=== PATIENT | male | born 1975 | race Caucasian/White ===

== ENCOUNTER 2016-08-21 12:35 | Inpatient (IN) | payer BC ==
[2016-08-21] MEDS ORDERED: Sodium Chloride 0.9% 1000 ML 1,000 ML IV SCH (13:15)
[2016-08-21] MEDS ORDERED: Zofran 4 MG/2 ML VIAL IV ONE (13:21)
[2016-08-21] MEDS ORDERED: DILAUDID 2 MG INJECTION IV ONE (13:22)
[2016-08-21] MEDS ORDERED: Sodium Chloride 0.9% 1000 ML 1,000 ML IV STA (13:30)
--- NOTE | 2016-08-21 13:30 | ERPHSYRPT ---
- History of Present Illness Time Seen by Provider: 08/21/16 13:00 Source: patient Exam Limitations: clinical condition Patient Subjective Stated Complaint: PT REPORTS KNOWN BLOOD CLOT ET CELLULITIS IN RIGHT LEG-TX AT PCP WITH [facility] INJECTION ET RX FOR CLYNDAMICIN YESTERDAY- STATES THAT TODAY REDNESS HAS MOVED UP PAST HIS KNEE-REPORTS FEVER AT HOME Triage Nursing Assessment: PT PINK WARM ET DRY-A & O X 3-REDNESS WARMTH NOTED TO RIGHT LEG FRON FOOT TO UPPER THIGH AREA-PEDAL PULSE PRESENT-PT HAS FULL ROM TO EXTREMITY Physician History: PATIENT WITH HISTORY OF DVT RIGHT LOWER EXTREMITY, MORBID OBESITY, AND MULTIPLE EPISODES OF CELLULITIS COMPLAINS OF RIGHT CALF REDNESS YESTERDAY WHICH HAS NOW EXTENDED TO THE LEVEL OF HIS RIGHT KNEE. HAS ASSOCIATED FEVER, CHILLS AND CALF PAIN. DENIES DYSPNEA OR CHEST PAIN. Method of Injury: other (NO RECENT INJURY OR TRAUMA) Severity of Pain-Max: moderate Severity of Pain-Current: moderate Lower Extremities Pain: leg: right Modifying Factors: Improves With: movement Allergies/Adverse Reactions: sulfamethoxazole [From Bactrim] Allergy (Intermediate, Verified 08/21/16 12:59) Rash trimethoprim [From Bactrim] Allergy (Intermediate, Verified 08/21/16 12:59) Rash Home Medications: Furosemide 20 mg [Lasix 20 mg] 20 mg PO DAILY 11/03/12 [History] Lisinopril 20 mg [Zestril 20 MG] 20 mg PO DAILY 11/03/12 [History] Potassium Chloride [K-Dur] 10 meq PO DAILY 11/03/12 [History] Warfarin Sodium [Jantoven] 18 mg PO DAILY 04/03/13 [History] Bupropion HCl 150 mg Sr [Wellbutrin SR 150 MG] 150 mg PO DAILY 08/21/16 [ History] Hx Tetanus, Diphtheria Vaccination/Date Given: Yes Hx Influenza Vaccination/Date Given: No Hx Pneumococcal Vaccination/Date Given: No Immunizations Up to Date: Yes - Review of Systems Constitutional: Fever, Chills Eyes: No Symptoms Ears, Nose, & Throat: No Symptoms Respiratory: No Symptoms, No Cough, No Dyspnea Cardiac: No Symptoms, No Chest Pain, No Edema, No Syncope Abdominal/Gastrointestinal: No Abdominal Pain, No Nausea, No Vomiting, No Diarrhea Genitourinary Symptoms: No Dysuria Musculoskeletal: No Back Pain, No Neck Pain Skin: Cellulitis, No Rash Neurological: No Dizziness, No Focal Weakness, No Sensory Changes Psychological: No Symptoms Endocrine: No Symptoms All Other Systems: Reviewed and Negative - Past Medical History Pertinent Past Medical History: Yes Neurological History: No Pertinent History ENT History: No Pertinent History Cardiac History: Deep Vein Thrombosis, Hypertension Respiratory History: No Pertinent History Endocrine Medical History: No Pertinent History Musculoskeletal History: No Pertinent History GI Medical History: GERD History: No Pertinent History Psycho-Social History: No Pertinent History Male Reproductive Disorders: No Pertinent History - Past Surgical History Past Surgical History: Yes Neuro Surgical History: No Pertinent History Cardiac: No Pertinent History Respiratory: No Pertinent History Gastrointestinal: No Pertinent History Genitourinary: No Pertinent History Musculoskeletal: No Pertinent History Male Surgical History: No Pertinent History Other Surgical History: TONSILLECTOMY - Social History Smoking Status: Former smoker Exposure to second hand smoke: No Drug Use: none Patient Lives Alone: Yes - Nursing Vital Signs Nursing Vital Signs: Initial Vital Signs Temperature 98.7 F Temperature Source Oral Pulse Rate 92 Respiratory Rate 20 Blood Pressure 106/54 Pain Intensity 0 - Physical Exam General Appearance: alert Eyes, Ears, Nose, Throat Exam: moist mucous membranes Neck Exam: non-tender, supple Cardiovascular/Respiratory Exam: chest non-tender, normal breath sounds, regular rate/rhythm, no respiratory distress Gastrointestinal/Abdominal Exam: non-tender, guarding Back Exam: normal inspection, No vertebral tenderness Legs Exam: right leg: pain, soft tissue tenderness, swelling (CONFLUENT ERYTHRMA EXTENDS ANKLE TO KNEE, RIGHT PEDIS PULSE 2+, CIRCUMFERENCE RIGHT MILD CALF 63CM COMPARED TO LEFT CALF CIRCUMFERENCE 51CM) Neuro/Tendon Exam: normal sensation, normal motor functions Mental Status Exam: alert, oriented x 3, cooperative Skin Exam: normal color, warm, dry SpO2 Interpretation: normal SpO2: 94 Oxygen Delivery: Room Air Ordered Tests: Active Orders 24 hr Category Date Time Status IV Insertion STAT Care 08/21/16 13:05 Active BLOOD CULTURE Stat Lab 08/21/16 13:33 Received CBC W DIFF Stat Lab 08/21/16 13:26 Completed CMP Stat Lab 08/21/16 13:26 Completed Lactic Acid Urgent Lab 08/21/16 13:05 Completed Manual Differential NC Stat Lab 08/21/16 13:26 Completed PT INR [PROTIME WITH INR] Stat Lab 08/21/16 13:26 Completed Transfer Order Routine Transfer 08/21/16 15:25 Ordered Medication Summary Generic Name Dose Route Start Last Admin Trade Name Bill PRN Reason Stop Dose Admin Sodium Chloride 1,000 mls @ 100 mls/hr 08/21/16 13:15 08/21/16 14:56 Sodium Chloride 0.9% 1000 Ml IV 09/20/16 13:14 100 mls/hr .Q10H CB Administration Vancomycin HCl 250 mls @ 250 mls/hr 08/21/16 13:45 08/21/16 15:01 Vancomycin 1gm/ Ns 250ml IV 08/21/16 15:44 250 mls/hr Q1H CB Administration Discontinued Medications Generic Name Dose Route Start Last Admin Trade Name Bill PRN Reason Stop Dose Admin Hydromorphone HCl 2 mg 08/21/16 13:22 08/21/16 13:40 Dilaudid 2 Mg Injection IV 08/21/16 13:23 2 mg STAT ONE Administration Hydromorphone HCl Confirm 08/21/16 13:37 Dilaudid 1 Mg/Ml Injection Administered 08/21/16 13:38 Dose 2 mg .ROUTE .STK-MED ONE Sodium Chloride 1,000 mls @ 999 mls/hr 08/21/16 13:30 08/21/16 13:40 Sodium Chloride 0.9% 1000 Ml IV 08/21/16 14:30 999 mls/hr .Q1H1M STA Administration Piperacillin Sod/Tazobactam 100 mls @ 100 mls/hr 08/21/16 13:31 08/21/16 13: 39 Sod 4.5 gm/ Dextrose IV 08/21/16 14:30 100 mls/hr STAT ONE Administration Sodium Chloride Confirm 08/21/16 13:37 Sodium Chloride 0.9% 1000 Ml Administered 08/21/16 13:38 Dose 1,000 mls @ ud .ROUTE .STK-MED ONE Dextrose Confirm 08/21/16 13:37 D5w 100ml Mini Bag 100 Ml Administered 08/21/16 13:38 Dose 100 mls @ ud IV .STK-MED ONE Sodium Chloride Confirm 08/21/16 14:55 Sodium Chloride 0.9% 1000 Ml Administered 08/21/16 14:56 Dose 1,000 mls @ ud .ROUTE .STK-MED ONE Vancomycin HCl Confirm 08/21/16 14:55 Vancomycin 1gm/ Ns 250ml Administered 08/21/16 14:56 Dose 250 mls @ ud IV .STK-MED ONE Ondansetron HCl 4 mg 08/21/16 13:21 08/21/16 13:39 Zofran 4 Mg/2 Ml Vial IV 08/21/16 13:22 4 mg STAT ONE Administration Ondansetron HCl Confirm 08/21/16 13:37 Zofran 4 Mg/2 Ml Vial Administered 08/21/16 13:38 Dose 4 mg .ROUTE .STK-MED ONE Piperacillin Sod/Tazobactam Sod Confirm 08/21/16 13:37 Zosyn Inj Administered 08/21/16 13:38 Dose 4.5 gm IV .STK-MED ONE Lab/Rad Data: Laboratory Result Diagrams 08/21/16 13:26 08/21/16 13:26 Laboratory Results 08/21/16 08/21/16 08/21/16 Range/Units 13:26 13:26 13:26 WBC 22.2 H (4.0-10.5) K/mm3 RBC 4.36 (4.1-5.6) M/mm3 Hgb 13.6 (12.5-18.0) gm/dl Hct 41.0 L (42-50) % MCV 94.0 (78-100) fl MCH 31.2 (26-32) pg MCHC 33.2 (32-36) g/dl RDW 14.1 H (11.5-14.0) % Plt Count 199 (150-450) K/mm3 MPV 9.6 H (6-9.5) fl Segmented Neutrophils 69 H (36.-66.) % Band Neutrophils 17 H (0.0-2.0) % Lymphocytes (Manual) 7 L (24-44) % Monocytes (Manual) 3 (0.0-12.0) % Metamyelocytes 4 % Dohle Bodies 1+ Platelet Estimate NORMAL (NORMAL) Anisocytosis 1+ INR 2.57 (0.8-3.0) Sodium 139 (136-145) mEq/L Potassium 4.1 (3.5-5.1) mEq/L Chloride 102 (98-107) mEq/L Carbon Dioxide 26.3 (21-32) mEq/L Anion Gap 14.6 (5-15) MEQ/L BUN 16 (9-20) mg/dL Creatinine 1.25 (0.55-1.30) mg/dl Estimated GFR > 60 ML/MIN Glucose 102 (70-110) MG/DL Lactic Acid (0.4-2.0) Calcium 8.8 (8.5-10.1) mg/dL Total Bilirubin 0.8 (0.2-1.0) mg/dL AST 66 H (15-37) U/L ALT 77 (12-78) U/L Alkaline Phosphatase 52 (46-116) U/L Serum Total Protein 7.3 (6.4-8.2) gm/dL Albumin 3.4 (3.4-5.0) g/dL 08/21/16 Range/Units 13:05 WBC (4.0-10.5) K/mm3 RBC (4.1-5.6) M/mm3 Hgb (12.5-18.0) gm/dl Hct (42-50) % MCV (78-100) fl MCH (26-32) pg MCHC (32-36) g/dl RDW (11.5-14.0) % Plt Count (150-450) K/mm3 MPV (6-9.5) fl Segmented Neutrophils (36.-66.) % Band Neutrophils (0.0-2.0) % Lymphocytes (Manual) (24-44) % Monocytes (Manual) (0.0-12.0) % Metamyelocytes % Dohle Bodies Platelet Estimate (NORMAL) Anisocytosis INR (0.8-3.0) Sodium (136-145) mEq/L Potassium (3.5-5.1) mEq/L Chloride (98-107) mEq/L Carbon Dioxide (21-32) mEq/L Anion Gap (5-15) MEQ/L BUN (9-20) mg/dL Creatinine (0.55-1.30) mg/dl Estimated GFR ML/MIN Glucose (70-110) MG/DL Lactic Acid 1.4 (0.4-2.0) Calcium (8.5-10.1) mg/dL Total Bilirubin (0.2-1.0) mg/dL AST (15-37) U/L ALT (12-78) U/L Alkaline Phosphatase (46-116) U/L Serum Total Protein (6.4-8.2) gm/dL Albumin (3.4-5.0) g/dL - Progress Discussed with : Giorgi Will see patient in: hospital (full admit) (AT 1430) - Departure Time of Disposition: 15:30 Departure Disposition: In-patient Admission Clinical Impression: CELLULITIS RIGHT LOWER EXTREMITY Condition: Stable Critical Care Time: No Referrals: MARYJANE ASIF NP [Primary Care Provider] -
[2016-08-21] MEDS ORDERED: Zosyn INJ 4.5 GM in D5w 100ML Mini Bag 100 ML 100 ML IV ONE (13:31)
[2016-08-21] MEDS ORDERED: Zofran 4 MG/2 ML VIAL ONE (13:37)
[2016-08-21] MEDS ORDERED: D5w 100ML Mini Bag 100 ML 100 ML IV ONE (13:37)
[2016-08-21] MEDS ORDERED: DILAUDID 1 MG/ML INJECTION ONE (13:37)
[2016-08-21] MEDS ORDERED: Zosyn INJ IV ONE (13:37)
[2016-08-21] MEDS ORDERED: Sodium Chloride 0.9% 1000 ML 1,000 ML ONE ×2 (13:37→14:55)
[2016-08-21 13:46] LABS: Mean Corpuscular Hemoglobin 31.2 pg (26-32); Mean Platelet Volume 9.6 fl (6-9.5); Platelet Count 199 K/mm3 (150-450); Red Blood Count 4.36 M/mm3 (4.1-5.6); Red Cell Distribution Width 14.1 % (11.5-14.0); White Blood Count 22.2 K/mm3 (4.0-10.5)
[2016-08-21 14:02] LABS: ALBUMIN 3.4 g/dL (3.4-5.0); ALKALINE PHOSPHATASE 52 U/L (46-116); ANION GAP 14.6 MEQ/L (5-15); BILIRUBIN,TOTAL 0.8 mg/dL (0.2-1.0); BLOOD UREA NITROGEN 16 mg/dL (9-20); CHLORIDE 102 mEq/L (98-107); Carbon Dioxide 26.3 mEq/L (21-32); Glucose 102 MG/DL (70-110); Potassium 4.1 mEq/L (3.5-5.1); SGOT/AST 66 U/L (15-37); SGPT/ALT 77 U/L (12-78); SODIUM 139 mEq/L (136-145); Total Protein 7.3 gm/dL (6.4-8.2)
[2016-08-21 14:05] LABS: INR 2.57 (0.8-3.0)
[2016-08-21 14:49] LABS: BAND 17 % (0.0-2.0); Metamyelocyte 4 %; Total Cells Counted 100
[2016-08-21] MEDS ORDERED: Vancomycin 1GM/ Ns 250ML*** 250 ML IV ONE (14:55)
[2016-08-21 14:57] LABS: Dohle Bodies 1+; Platelet Estimate NORMAL (NORMAL)
[2016-08-21 14:58] LABS: ANISOCYTOSIS 1+
[2016-08-21] MEDS: Vancomycin 1GM/ Ns 250ML*** 250 ML IV SCH ×2 (15:01→17:24)
[2016-08-21] MEDS ORDERED: TYLENOL 325 MG PO PRN (15:48)
[2016-08-21] MEDS ORDERED: DILAUDID 2 MG INJECTION IV PRN (15:48)
[2016-08-21] MEDS ORDERED: Zofran 4 MG/2 ML VIAL IV PRN (15:48)
[2016-08-21] MEDS: Coumadin 3 MG PO SCH (18:50)
[2016-08-21] MEDS: Coumadin 5 MG PO SCH (18:50)
[2016-08-21] MEDS: VOLTAREN 50 MG PO SCH (18:50)
[2016-08-21] MEDS: Zosyn 3.375GM/100 Ml D5W 100 ML IV SCH (20:52)
[2016-08-21] MEDS: Wellbutrin SR 150 MG PO SCH (21:51)
[2016-08-21] MEDS ORDERED: NON-FORMULARY ITEM (Diclofenac Sodium [Voltaren] 75 MG) PO SCH (22:00)
[2016-08-22] MEDS: Zosyn 3.375GM/100 Ml D5W 100 ML IV SCH ×4 (01:36→17:52)
[2016-08-22] MEDS: Sodium Chloride 0.9% 1000 ML 1,000 ML IV SCH ×2 (05:08→05:41)
[2016-08-22] MEDS: VANCOCIN 1 GM VIAL*** 2 GM in Sodium Chloride 0.9% 500 ML 500 ML IV SCH ×2 (06:43→19:23)
[2016-08-22] MEDS: LASIX 20 MG PO SCH (08:35)
[2016-08-22] MEDS: Klor Con 10 MEQ PO SCH (08:35)
[2016-08-22] MEDS: Wellbutrin SR 150 MG PO SCH ×2 (08:35→21:19)
[2016-08-22] MEDS: VOLTAREN 50 MG PO SCH ×2 (08:36→21:19)
[2016-08-22] MEDS: Zestril 20 MG PO SCH (08:36)
[2016-08-22 09:39] LABS: BASOPHIL % 0.1 % (0.0-0.4); Eosinophil % 0.1 % (0.00-5.0); Granulocytes % 93.3 % (36.0-66.0); Lymphocytes % 4.8 % (24.0-44.0); Mean Cell Volume 95.9 fl (78-100); Mean Platelet Volume 9.8 fl (6-9.5); Monocytes % 1.7 % (0.0-12.0); Platelet Count 178 K/mm3 (150-450); Red Blood Count 4.13 M/mm3 (4.1-5.6); Red Cell Distribution Width 14.6 % (11.5-14.0)
[2016-08-22] MEDS ORDERED: NON-FORMULARY ITEM (Potassium Chloride [K-Dur] 10 MEQ) PO SCH (10:00)
[2016-08-22 10:08] LABS: INR 2.08 (0.8-3.0); PROTIME 22.8 SECONDS (8.83-12.87)
--- NOTE | 2016-08-22 10:55 | HP ---
CHIEF COMPLAINT: Swelling and redness in right lower extremity, history of deep vein thrombosis. HISTORY OF PRESENT ILLNESS: The patient is a 41 y/o WM patient who presented to the Emergency Room with the above complaints. He reports he had fever up to 104 at home. He had been seen the day previous at the [facility] and placed on Clindamycin, but the patient reports the pain, redness, and swelling got worse, so he presented himself to the Emergency Room. PAST MEDICAL HISTORY: Significant for deep vein thrombosis, depression, hypertension. He has had a tonsillectomy. PHYSICAL EXAMINATION: Reveals an obese WM patient 41 years of age. His temperature was 98.7 oral, pulse 92, respiratory rate 20, BP 106/54. HEENT: Normocephalic and atraumatic. Pupils equal, round, and reactive to light. Extraocular movements intact. Oropharynx was pink and moist. NECK: Supple without lymphadenopathy, thyromegaly, or JVD. CHEST: Clear to auscultation with good air movement bilaterally. HEART: Regular rate and rhythm without murmurs, rubs, or gallops. ABDOMEN: Soft, nontender, nondistended without hepatosplenomegaly or masses. EXTREMITIES: Without clubbing, cyanosis, or edema. There is cellulitis extending upwards from the foot up to the knee anteriorly and posteriorly up on the thigh up to the groin. The patient also has swelling in that area noted. It is with increase in warmth compared to the opposite leg. LABORATORY STUDIES: Reveal WBC of 22,200 with an Hgb of 13.6, platelet count 199,000. He has 17 bands and 69 polys. His metabolic panel was normal with the exception SGOT was just elevated at 66. He had a lactic acid of 1.4 and an INR of 2.57. ASSESSMENT: 1. PATIENT WITH DEEP VENOUS THROMBOSIS RIGHT LEG OF LONG-STANDING WHO IS ADEQUATELY ANTICOAGULATED AND NOW CELLULITIS IN THAT SAME LEG. The patient has been admitted to the hospital for IV fluids, pain control, and IV antibiotics of Zosyn and vancomycin. The patient will be continued on his Coumadin and his usual home medications otherwise.
[2016-08-22] MEDS: Coumadin 5 MG PO SCH (17:53)
[2016-08-22] MEDS: Coumadin 3 MG PO SCH (17:53)
[2016-08-23] MEDS: Sodium Chloride 0.9% 1000 ML 1,000 ML IV SCH ×3 (00:22→11:47)
[2016-08-23] MEDS: Zosyn 3.375GM/100 Ml D5W 100 ML IV SCH ×5 (00:22→23:06)
[2016-08-23] MEDS ORDERED: TROUGH DRUG LEVELS IJ ONE (05:30)
[2016-08-23 05:37] LABS: Mean Cell Volume 95.5 fl (78-100); Mean Corpuscular Hemoglobin 30.5 pg (26-32); Mean Platelet Volume 9.7 fl (6-9.5); Platelet Count 193 K/mm3 (150-450); Red Blood Count 4.19 M/mm3 (4.1-5.6); Red Cell Distribution Width 14.6 % (11.5-14.0); White Blood Count 13.8 K/mm3 (4.0-10.5)
[2016-08-23 05:48] LABS: INR 2.34 (0.8-3.0); PROTIME 25.6 SECONDS (8.83-12.87)
[2016-08-23] MEDS: VANCOCIN 1 GM VIAL*** 2 GM in Sodium Chloride 0.9% 500 ML 500 ML IV SCH ×2 (06:10→18:15)
[2016-08-23] MEDS: Wellbutrin SR 150 MG PO SCH ×2 (09:24→21:23)
[2016-08-23] MEDS: LASIX 20 MG PO SCH (09:24)
[2016-08-23] MEDS: VOLTAREN 50 MG PO SCH ×2 (09:24→21:23)
[2016-08-23] MEDS: Zestril 20 MG PO SCH (09:25)
[2016-08-23] MEDS: Klor Con 10 MEQ PO SCH (09:25)
[2016-08-23 10:48] LABS: BAND 7 % (0.0-2.0); Platelet Estimate NORMAL (NORMAL); Total Cells Counted 100; Toxic Granulation 1+
[2016-08-23] MEDS: Coumadin 3 MG PO SCH (17:12)
[2016-08-23] MEDS: Coumadin 5 MG PO SCH (17:12)
[2016-08-24] MEDS: Zosyn 3.375GM/100 Ml D5W 100 ML IV SCH ×3 (05:09→17:22)
[2016-08-24] MEDS: VANCOCIN 1 GM VIAL*** 2 GM in Sodium Chloride 0.9% 500 ML 500 ML IV SCH ×2 (06:21→18:41)
[2016-08-24 06:30] LABS: Mean Cell Volume 95.5 fl (78-100); Mean Platelet Volume 9.7 fl (6-9.5); Platelet Count 211 K/mm3 (150-450); Red Blood Count 3.79 M/mm3 (4.1-5.6); Red Cell Distribution Width 14.5 % (11.5-14.0); White Blood Count 10.6 K/mm3 (4.0-10.5)
[2016-08-24 06:37] LABS: Mean Corpuscular Hemoglobin 30.8 pg (26-32)
[2016-08-24 06:38] LABS: ALBUMIN 2.8 g/dL (3.4-5.0); ALKALINE PHOSPHATASE 57 U/L (46-116); ANION GAP 11.4 MEQ/L (5-15); BILIRUBIN,TOTAL 0.3 mg/dL (0.2-1.0); BLOOD UREA NITROGEN 11 mg/dL (9-20); CHLORIDE 104 mEq/L (98-107); Carbon Dioxide 28.7 mEq/L (21-32); Glucose 98 MG/DL (70-110); Potassium 3.8 mEq/L (3.5-5.1); SGOT/AST 38 U/L (15-37); SGPT/ALT 53 U/L (12-78); SODIUM 140 mEq/L (136-145); Total Protein 7.1 gm/dL (6.4-8.2)
[2016-08-24 06:44] LABS: INR 2.81 (0.8-3.0); PROTIME 30.5 SECONDS (8.83-12.87)
[2016-08-24 07:51] LABS: BAND 1 % (0.0-2.0); Metamyelocyte 1 %; Total Cells Counted 100
[2016-08-24 07:52] LABS: Platelet Estimate NORMAL (NORMAL)
[2016-08-24] MEDS: VOLTAREN 50 MG PO SCH ×2 (09:14→22:50)
[2016-08-24] MEDS: Klor Con 10 MEQ PO SCH (09:15)
[2016-08-24] MEDS: Wellbutrin SR 150 MG PO SCH ×2 (09:15→22:50)
[2016-08-24] MEDS: LASIX 20 MG PO SCH (09:15)
[2016-08-24] MEDS: Zestril 20 MG PO SCH (09:15)
[2016-08-24] MEDS: Protonix 40MG Tablet PO SCH (09:46)
[2016-08-24] MEDS: Coumadin 5 MG PO SCH (17:22)
[2016-08-24] MEDS: Coumadin 3 MG PO SCH (17:23)
[2016-08-24] MEDS ORDERED: Vancomycin 1GM/ Ns 250ML*** 500 ML IV ONE (18:39)
[2016-08-25] MEDS: Zosyn 3.375GM/100 Ml D5W 100 ML IV SCH ×5 (03:33→23:48)
[2016-08-25] MEDS: VANCOCIN 1 GM VIAL*** 2 GM in Sodium Chloride 0.9% 500 ML 500 ML IV SCH ×2 (05:24→19:16)
[2016-08-25] MEDS ORDERED: SILVADENE 50 GM TP ONE (08:41)
[2016-08-25] MEDS ORDERED: Bactroban OINTMENT TP SCH (10:00)
[2016-08-25] MEDS: VOLTAREN 50 MG PO SCH ×2 (10:09→21:59)
[2016-08-25] MEDS: Wellbutrin SR 150 MG PO SCH ×2 (10:09→21:59)
[2016-08-25] MEDS: LASIX 20 MG PO SCH (10:09)
[2016-08-25] MEDS: Zestril 20 MG PO SCH (10:09)
[2016-08-25] MEDS: Protonix 40MG Tablet PO SCH (10:09)
[2016-08-25] MEDS: Klor Con 10 MEQ PO SCH (10:09)
[2016-08-25] MEDS: Coumadin 5 MG PO SCH (18:11)
[2016-08-25] MEDS: Coumadin 3 MG PO SCH (18:11)
[2016-08-26] MEDS: Zosyn 3.375GM/100 Ml D5W 100 ML IV SCH ×4 (05:35→23:17)
[2016-08-26] MEDS: VANCOCIN 1 GM VIAL*** 2 GM in Sodium Chloride 0.9% 500 ML 500 ML IV SCH ×2 (06:31→19:42)
[2016-08-26] MEDS: Bactroban OINTMENT TP SCH (09:15)
[2016-08-26] MEDS: Wellbutrin SR 150 MG PO SCH ×2 (09:15→21:45)
[2016-08-26] MEDS: LASIX 20 MG PO SCH (09:16)
[2016-08-26] MEDS: Klor Con 10 MEQ PO SCH (09:16)
[2016-08-26] MEDS: Zestril 20 MG PO SCH (09:17)
[2016-08-26] MEDS: Protonix 40MG Tablet PO SCH (09:17)
[2016-08-26] MEDS: VOLTAREN 50 MG PO SCH ×2 (09:18→21:45)
--- NOTE | 2016-08-26 13:16 | XRAY ---
Indication: Right leg edema. Two-dimensional sonogram and color Doppler imaging of the major venous vessels of the right leg was performed. Comparison: May 17, 2010. No thrombus seen in the examined deep venous vessels of the right leg including greater saphenous vein. Veins demonstrate normal compressibility. Venous waveforms are normal with and without augmentation. Impression: Right leg negative for DVT.
[2016-08-26] MEDS: Coumadin 5 MG PO SCH (18:28)
[2016-08-26] MEDS: Coumadin 3 MG PO SCH (18:28)
[2016-08-27] MEDS: Zosyn 3.375GM/100 Ml D5W 100 ML IV SCH ×4 (06:00→23:10)
[2016-08-27] MEDS: VANCOCIN 1 GM VIAL*** 2 GM in Sodium Chloride 0.9% 500 ML 500 ML IV SCH ×2 (07:14→18:42)
[2016-08-27] MEDS: LASIX 20 MG PO SCH (08:51)
[2016-08-27] MEDS: VOLTAREN 50 MG PO SCH ×2 (08:51→21:12)
[2016-08-27] MEDS: Klor Con 10 MEQ PO SCH (08:51)
[2016-08-27] MEDS: Zestril 20 MG PO SCH (08:51)
[2016-08-27] MEDS: Protonix 40MG Tablet PO SCH (08:51)
[2016-08-27] MEDS: Wellbutrin SR 150 MG PO SCH ×2 (08:51→21:12)
[2016-08-27] MEDS: Bactroban OINTMENT TP SCH (08:55)
[2016-08-27] MEDS: Coumadin 5 MG PO SCH (17:39)
[2016-08-27] MEDS: Coumadin 3 MG PO SCH (17:39)
[2016-08-28] MEDS: Zosyn 3.375GM/100 Ml D5W 100 ML IV SCH ×4 (05:32→23:32)
[2016-08-28 05:48] LABS: Mean Cell Volume 95.9 fl (78-100); Mean Corpuscular Hemoglobin 30.1 pg (26-32); Platelet Count 351 K/mm3 (150-450); Red Blood Count 3.91 M/mm3 (4.1-5.6); White Blood Count 11.2 K/mm3 (4.0-10.5)
[2016-08-28 05:59] LABS: ANION GAP 9.8 MEQ/L (5-15); BLOOD UREA NITROGEN 8 mg/dL (9-20); CHLORIDE 103 mEq/L (98-107); Carbon Dioxide 33.5 mEq/L (21-32); Glucose 89 MG/DL (70-110); Potassium 4.3 mEq/L (3.5-5.1); SODIUM 142 mEq/L (136-145)
[2016-08-28] MEDS: VANCOCIN 1 GM VIAL*** 2 GM in Sodium Chloride 0.9% 500 ML 500 ML IV SCH ×2 (06:36→19:26)
[2016-08-28 07:06] LABS: INR 3.19 (0.8-3.0); PROTIME 34.5 SECONDS (8.83-12.87)
[2016-08-28 08:02] LABS: BAND 3 % (0.0-2.0); Basophil 1 % (0.0-1.0); Eosinophil 1 % (0.00-3.0); Metamyelocyte 1 %; Total Cells Counted 100; Toxic Granulation 1+
[2016-08-28 08:03] LABS: Platelet Estimate NORMAL (NORMAL)
[2016-08-28] MEDS: Bactroban OINTMENT TP SCH (09:56)
[2016-08-28] MEDS: Klor Con 10 MEQ PO SCH (09:57)
[2016-08-28] MEDS: Wellbutrin SR 150 MG PO SCH ×2 (09:57→21:37)
[2016-08-28] MEDS: VOLTAREN 50 MG PO SCH ×2 (09:58→21:37)
[2016-08-28] MEDS: LASIX 20 MG PO SCH (09:58)
[2016-08-28] MEDS: Zestril 20 MG PO SCH (09:58)
[2016-08-28] MEDS: Protonix 40MG Tablet PO SCH (09:58)
--- NOTE | 2016-08-28 11:56 | XRAY ---
Indication: Short of breath. History of DVTs. Comparison: April 03, 2013 PA/lateral chest again demonstrates normal heart, lungs, and bony thorax.
--- NOTE | 2016-08-28 12:01 | XRAY ---
Indication: Short of breath and bloating. History of DVTs. Patient received 4.5 mCi technetium 99 microaggregated albumin for the perfusion portion. Patient inhaled 35.7 mCi of aerosolized technetium 99 DTPA. Multiplanar images obtained. Comparison: None Perfusion images demonstrates homogeneous radiopharmaceutical activity bilaterally without focal segmental or subsegmental perfusion defects. Ventilation images also demonstrates homogeneous radiopharmaceutical activity bilaterally. Small amount of ingested radiopharmaceutical activity in the distal esophagus and stomach. Impression: No matched or mismatched ventilation/perfusion defects. PIOPED criteria for pulmonary embolus is normal scan.
[2016-08-28] MEDS: Coumadin 5 MG PO SCH (18:06)
[2016-08-28] MEDS: Coumadin 3 MG PO SCH (18:06)
[2016-08-29] MEDS: Zosyn 3.375GM/100 Ml D5W 100 ML IV SCH ×2 (05:16→11:14)
[2016-08-29 06:01] LABS: INR 3.13 (0.8-3.0); PROTIME 33.9 SECONDS (8.83-12.87)
[2016-08-29] MEDS: VANCOCIN 1 GM VIAL*** 2 GM in Sodium Chloride 0.9% 500 ML 500 ML IV SCH (06:29)
[2016-08-29 06:57] VITALS: O2SAT 96
[2016-08-29] MEDS: Protonix 40MG Tablet PO SCH (09:19)
[2016-08-29] MEDS: Zestril 20 MG PO SCH (09:19)
[2016-08-29] MEDS: Klor Con 10 MEQ PO SCH (09:19)
[2016-08-29] MEDS: Wellbutrin SR 150 MG PO SCH (09:19)
[2016-08-29] MEDS: VOLTAREN 50 MG PO SCH (09:20)
[2016-08-29] MEDS: LASIX 20 MG PO SCH (09:20)
[2016-08-29] MEDS: Bactroban OINTMENT TP SCH (09:22)
[2016-08-29 11:50] VITALS: BP 197/97; PULSE 74
--- NOTE | 2016-09-02 10:26 | DS ---
DISCHARGE DIAGNOSES: 1) CELLULITIS, RIGHT LOWER EXTREMITY. 2) HISTORY OF DEEP VENOUS THROMBOSIS AND CHRONIC LYMPH EDEMA RIGHT LEG. HISTORY: The patient is a 41 year-old white male patient who presented to the emergency room with severe pain. He had swelling of right lower extremity which had been getting worse. He was seen as an outpatient and started on Clindamycin but this did not advert him from getting worse. He was seen in the emergency room and admitted to the hospital for further evaluation and management. HOSPITAL COURSE: The patient was admitted and placed on IV Zosyn and Vancomycin for the cellulitis. The patient's initial white blood cell was elevated with significant left shift with several bands. The patient did improve with IV therapy but very slowly. He was also seen in consultation by physical therapy. He developed an area of lower extremity that developed into a blistered area which then became somewhat puffy as well and worrisome for becoming necrotic. Physical therapy wrapped it and therefore flattened out nicely and scabbed over. We also placed Bactroban ointment over this area. The patient improved to the point where on 08/29/2016 it was felt he could be discharged home with trying Cipro and Zyvox orally. We discussed with the patient that if he has any worsening in his situation that he was to return to the hospital immediately for return to IV treatments of Vancomycin. The patient verbalized his understanding. He knows that he is not to be at work and to be off of his feet as much as possible. During his hospital course we evaluated him for deep venous thrombosis which was negative on the venous Doppler. The patient was too large to fit on the CT scan table or the VQ table to check for him for pulmonary embolism as his weight was over 450 lbs. We therefore could not evaluate him further for pulmonary embolism although he had no clinical evidence of pulmonary embolism. The patient resumed on his Coumadin throughout his stay. His international normalized ratios ranged from high 2.9 to 3.1 area during his stay, being 3.1 prior to his discharge home. The patient will be seen on physical therapy on Thursday and I will see him in the office on Thursday but if he experiences any worsening of circumstances he is to return to the hospital re-initiation of IV treatments.
== END 2016-08-29 14:05 | disposition home or self-care (01) | DRG 603 ==
LOC: ED 12:35 → MED SURG 15:45
PROVIDERS: ADMIT Family Medicine; ATTEND Family Medicine
DX: L03.115 Cellulitis of right lower limb (principal); Z86.718 Personal history of other venous thrombosis and embolism; I89.0 Lymphedema, not elsewhere classified; I10 Essential (primary) hypertension; M79.661 Pain in right lower leg; K21.9 Gastro-esophageal reflux disease without esophagitis; Z79.01 Long term (current) use of anticoagulants; Z79.899 Other long term (current) drug therapy
CPT/HCPCS: 36000; 36415; 71020; 78582; 80048; 80053; 80202; 82565; 83605; 85025; 85610; 85730; 87040; 87493; 93971; 94760; 96360; 96361; 96365; 96366; 96374; 96375; 99284; A6457; A9540; A9567; J1170; J2405; J2543; J3370

== ENCOUNTER 2020-07-16 09:42 | Inpatient (IN) | payer BC ==
--- NOTE | 2020-07-16 10:15 | ERPHSYRPT ---
- History of Present Illness Source: patient Exam Limitations: no limitations Patient Subjective Stated Complaint: Pt positive for covid and is having a cellulitis flare up on his right leg Triage Nursing Assessment: Pt brought to the ER by his , entire right left red and swollen, rates pain 5/10, no difficulties with breathing, tachycardic, N&V, diarrhea, cough with mild sputum Physician History: 45 yo wm w fever/RLE edema, erythema, pain 6/10. Pt states that he has a h/o RLE cellulitis along w DVT x2. He is on coumadin but has not had his INR drawn in a while. Pt diagnosed w Covid19 on 07/04/20. He has a mild cough wo coryza/ST. Pt also has mild N/D but denies dysuria/hematuria/chest pain/dyspnea. Timing/Duration: yesterday Quality: painful Severity: moderate Location: extremities (RLE) Possible Causes: other (h/o cellulitis) Modifying Factors: Improves With: other (Worse w movement) Associated Symptoms: edema, fever, No blisters, No change in skin texture, No difficulty breathing, No flushing, No headache, No hives, No jaundice, No malaise, No nasal congestion, No numbness, No pallor, No paresthesia, No petechiae, No rash, No sore throat, No swelling/mass/lumps, No tingling Allergies/Adverse Reactions: sulfamethoxazole [From Bactrim] Allergy (Intermediate, Verified 07/16/20 09:58) Rash trimethoprim [From Bactrim] Allergy (Intermediate, Verified 07/16/20 09:58) Rash Home Medications: Lisinopril 20 mg [Zestril 20 MG] 20 mg PO DAILY 11/03/12 [History] Warfarin Sodium [Jantoven] 18 mg PO DAILY 04/03/13 [History] Diclofenac Sodium [Voltaren] 75 mg PO BID 08/21/16 [History] Hx Tetanus, Diphtheria Vaccination/Date Given: Yes Hx Influenza Vaccination/Date Given: No Hx Pneumococcal Vaccination/Date Given: No Travel Risk - International Travel Have you traveled outside of the country in past 3 weeks: No - Coronavirus Screening Are you exhibiting any of the following symptoms?: Yes Symptoms: Fever Close contact with a COVID-19 positive Pt in past 14-21 Days: No - Review of Systems Constitutional: Fever, Chills Eyes: No Symptoms Ears, Nose, & Throat: No Symptoms Respiratory: No Symptoms, Cough Cardiac: No Symptoms Abdominal/Gastrointestinal: No Symptoms Genitourinary Symptoms: No Symptoms Musculoskeletal: Arthralgias Skin: Cellulitis Neurological: No Symptoms Psychological: No Symptoms Endocrine: No Symptoms Hematologic/Lymphatic: No Symptoms Immunological/Allergic: No Symptoms - Past Medical History Pertinent Past Medical History: Yes Neurological History: Peripheral Neuropathy ENT History: No Pertinent History Cardiac History: High Cholesterol, Hypertension Respiratory History: No Pertinent History Endocrine Medical History: No Pertinent History Musculoskeletal History: Arthritis GI Medical History: No Pertinent History History: No Pertinent History Psycho-Social History: Anxiety Male Reproductive Disorders: No Pertinent History Other Medical History: O.A. TO BOTH HANDS AND SHOULDERS, - Past Surgical History Past Surgical History: Yes Neuro Surgical History: No Pertinent History Cardiac: No Pertinent History Respiratory: No Pertinent History Gastrointestinal: No Pertinent History Genitourinary: No Pertinent History Musculoskeletal: No Pertinent History Male Surgical History: No Pertinent History Other Surgical History: TONSILLECTOMY - Social History Smoking Status: Former smoker Exposure to second hand smoke: No Alcohol Use: Socially Drug Use: none Patient Lives Alone: No Significant Family History: no pertinent family hx - Nursing Vital Signs Nursing Vital Signs: Initial Vital Signs Temperature 100.4 F 07/16/20 09:49 Pulse Rate 106 H 07/16/20 09:49 Blood Pressure 140/71 07/16/20 09:49 O2 Sat by Pulse Oximetry 95 07/16/20 09:49 Pain Scale Pain Intensity 4 - Physical Exam General Appearance: no apparent distress Eye Exam: PERRL/EOMI, eyes nml inspection Ears, Nose, Throat Exam: normal ENT inspection, TMs normal, pharynx normal Neck Exam: normal inspection, non-tender, supple, full range of motion, No meningismus, No mass, No Brudzinski, No Kernig's Respiratory Exam: other (Occ wheeze/rhonchi but overall clear) Cardiovascular Exam: tachycardia, No murmur Gastrointestinal/Abdomen Exam: soft, normal bowel sounds, No tenderness (Morbidly obese) Rectal Exam: deferred Back Exam: normal inspection, normal range of motion, No CVA tenderness, No vertebral tenderness Extremity Exam: other (Marked RLE edema/erythema) Neurologic Exam: alert, oriented x 3, cooperative, sod cutter II-XII nml as tested, normal mood/affect, sensation nml, No motor deficits, No sensory deficit Skin Exam: other (Marked erythema RLE) Lymphatic Exam: No adenopathy SpO2 Interpretation: normal SpO2: 95 O2 Delivery: Room Air - Course Nursing assessment & vital signs reviewed: Yes - Radiology Exams Chest X-ray Interpretation: Discussed w/ radiologist (NAD) - Radiology Ultrasound Exam Venous Lower Extremity Ultrasound: discussed w/radiologist (No DVT/Lymph nodes) Ordered Tests: Active Orders 24 hr Category Date Time Status Consistent Carbohydrate Diet 1999 Calorie Diet 07/16/20 Lunch Active CHEST 1 VIEW (PORTABLE) Stat Exams 07/16/20 10:05 Completed Ultrasound Unilateral Extremities [VENOUS UNILAT/ Exams 07/16/20 11:05 Completed LIMITED EXTREMIT] [US] Stat BLOOD CULTURE Stat Lab 07/16/20 10:55 Received CBC W DIFF AM.LAB Lab 07/17/20 04:00 Ordered CBC W DIFF Stat Lab 07/16/20 10:00 Completed CMP AM.LAB Lab 07/17/20 04:00 Ordered CMP Stat Lab 07/16/20 10:00 Completed CULTURE,URINE Stat Lab 07/16/20 10:05 Ordered Lactic Acid AM.LAB Lab 07/17/20 04:00 Ordered Lactic Acid Stat Lab 07/16/20 10:18 Completed Manual Differential NC Stat Lab 07/16/20 10:00 Completed PROTIME WITH INR Stat Lab 07/16/20 10:00 Completed PTT Stat Lab 07/16/20 10:00 Completed UA W/RFX UR CULTURE Stat Lab 07/16/20 10:17 Completed Transfer Order Routine Transfer 07/16/20 Completed Medication Summary Generic Name Dose Route Start Last Admin Trade Name Freq PRN Reason Stop Dose Admin Acetaminophen 650 mg 07/16/20 12:11 07/16/20 20:40 Tylenol 325 Mg PO 08/15/20 12:10 650 mg Q4H PRN PRN Administration PAIN AND/OR FEVER Famotidine 20 mg 07/16/20 22:00 07/16/20 20:40 Pepcid 20 Mg Vial IV 08/15/20 21:59 20 mg Q12HT CB Administration Sodium Chloride 1,000 mls @ 100 mls/hr 07/16/20 12:15 07/16/20 14:06 Sodium Chloride 0.9% 1000 Ml IV 08/15/20 12:14 100 mls/hr .Q10H CB Administration Piperacillin Sod/Tazobactam 100 mls @ 200 mls/hr 07/16/20 18:00 07/16/20 18:09 Sod 3.375 gm/ Sodium Chloride IV 08/15/20 17:59 200 mls/hr Q6HT CB Administration Vancomycin HCl 2.5 gm/ Sodium 500 mls @ 167 mls/hr 07/16/20 13:00 07/16/20 14:06 Chloride IV 08/15/20 12:59 167 mls/hr Q12H CB Administration Lisinopril 20 mg 07/17/20 10:00 Zestril 20 Mg PO 08/16/20 09:59 DAILY CB Lorazepam 2 mg 07/16/20 19:59 Ativan 1 Mg PO 08/15/20 19:58 HS PRN PRN INSOMNIA Morphine Sulfate 4 mg 07/16/20 16:09 Morphine Sulfate 4 Mg Inj IV 07/21/20 16:08 Q3H PRN PRN PAIN Pantoprazole Sodium 40 mg 07/16/20 14:00 07/16/20 14:06 Protonix 40 Mg Iv IV 08/15/20 13:59 40 mg Q24H10 CB Administration Discontinued Medications Generic Name Dose Route Start Last Admin Trade Name Freq PRN Reason Stop Dose Admin Piperacillin Sod/Tazobactam 100 mls @ 200 mls/hr 07/16/20 10:51 07/16/20 10:58 Sod 3.375 gm/ Sodium Chloride IV 07/16/20 11:20 200 mls/hr STAT ONE Administration Sodium Chloride Confirm 07/16/20 10:54 Sodium Chloride 100ml Mini-Bag Plus Administered 07/16/20 10:55 Dose 100 mls @ ud IV .STK-MED ONE Sodium Chloride Confirm 07/16/20 18:04 Sodium Chloride 100ml Mini-Bag Plus Administered 07/16/20 18:05 Dose 100 mls @ ud IV .STK-MED ONE Ibuprofen 400 mg 07/16/20 16:08 07/16/20 16:24 Motrin 400 Mg PO 08/15/20 16:07 400 mg Q6H PRN PRN Administration PAIN AND/OR FEVER Insulin Human Lispro 0 unit 07/16/20 12:11 Humalog SQ 08/15/20 12:10 UD PRN HYPERGLYCEMIA Non-Formulary Drug 75 mg 07/16/20 22:00 07/16/20 18:02 (Diclofenac Sodium [ PO 08/15/20 21:59 Not Given Voltaren] 75 Mg) BID CB Piperacillin Sod/Tazobactam Sod Confirm 07/16/20 10:53 Zosyn 3.375 Gm Vial Administered 07/16/20 10:54 Dose 3.375 gm IV .STK-MED ONE Piperacillin Sod/Tazobactam Sod Confirm 07/16/20 18:03 Zosyn 3.375 Gm Vial Administered 07/16/20 18:04 Dose 3.375 gm IV .STK-MED ONE Lab/Rad Data: Laboratory Result Diagrams 07/16/20 10:00 07/16/20 10:00 Laboratory Results 07/16/20 07/16/20 07/16/20 Range/Units 10:18 10:17 10:00 WBC (4.0-10.5) K/mm3 RBC (4.1-5.6) M/mm3 Hgb (12.5-18.0) gm/dl Hct (42-50) % MCV (78-100) fl MCH (26-32) pg MCHC (32-36) g/dl RDW (11.5-14.0) % Plt Count (150-450) K/mm3 MPV (7.5-11.0) fl Absolute Granulocytes (1.4-6.9) Segmented Neutrophils (36.-66.) % Band Neutrophils (0.0-2.0) % Lymphocytes (Manual) (24-44) % Monocytes (Manual) (0.0-12.0) % Metamyelocytes % Platelet Estimate (NORMAL) RBC Morphology PT 46.3 H (8.83-12.87) SECONDS INR 4.04 H (0.8-3.0) APTT 46.5 H (24.1-36.1) SECONDS Sodium (137-145) mmol/L Potassium (3.5-5.1) mmol/L Chloride (98-107) mmol/L Carbon Dioxide (22-30) mmol/L Anion Gap (5-15) MEQ/L BUN (9-20) mg/dL Creatinine (0.66-1.25) mg/dL Estimated GFR ML/MIN Glucose (74-106) mg/dL Lactic Acid 1.7 (0.4-2.0) Calcium (8.4-10.2) mg/dL Total Bilirubin (0.2-1.3) mg/dL AST (17-59) U/L ALT (0-50) U/L Alkaline Phosphatase (38-126) U/L Serum Total Protein (6.3-8.2) g/dL Albumin (3.5-5.0) g/dL Urine Color TRISH (YELLOW) Urine Appearance SLIGHTLY CLOUDY (CLEAR) Urine pH 6.0 (5-6) Ur Specific Enochs 1.020 (1.005-1.025) Urine Protein 30 (Negative) Urine Ketones TRACE (NEGATIVE) Urine Blood SMALL (0-5) Robert/ul Urine Nitrite NEGATIVE (NEGATIVE) Urine Bilirubin NEGATIVE (NEGATIVE) Urine Urobilinogen NEGATIVE (0-1) mg/dL Ur Leukocyte Esterase NEGATIVE (NEGATIVE) Urine WBC (Auto) 3-5 (0-5) /HPF Urine RBC (Auto) 0-2 (0-2) /HPF U Epithel Cells (Auto) NONE (FEW) /HPF Urine Bacteria (Auto) NONE SEEN (NEGATIVE) /HPF Urine Culture Reflexed ORDERED SEPARATELY (NO) Urine Glucose NEGATIVE (NEGATIVE) mg/dL 07/16/20 07/16/20 Range/Units 10:00 10:00 WBC 23.6 H (4.0-10.5) K/mm3 RBC 4.47 (4.1-5.6) M/mm3 Hgb 14.2 (12.5-18.0) gm/dl Hct 42.5 (42-50) % MCV 95.1 (78-100) fl MCH 31.8 (26-32) pg MCHC 33.4 (32-36) g/dl RDW 13.2 (11.5-14.0) % Plt Count 252 (150-450) K/mm3 MPV 9.5 (7.5-11.0) fl Absolute Granulocytes 21.48 H (1.4-6.9) Segmented Neutrophils 45 (36.-66.) % Band Neutrophils 46 H (0.0-2.0) % Lymphocytes (Manual) 5 L (24-44) % Monocytes (Manual) 1 (0.0-12.0) % Metamyelocytes 3 % Platelet Estimate NORMAL (NORMAL) RBC Morphology NORMAL PT (8.83-12.87) SECONDS INR (0.8-3.0) APTT (24.1-36.1) SECONDS Sodium 133 L (137-145) mmol/L Potassium 3.9 (3.5-5.1) mmol/L Chloride 100 (98-107) mmol/L Carbon Dioxide 27 (22-30) mmol/L Anion Gap 9.8 (5-15) MEQ/L BUN 21 H (9-20) mg/dL Creatinine 1.07 (0.66-1.25) mg/dL Estimated GFR > 60.0 ML/MIN Glucose 111 H (74-106) mg/dL Lactic Acid (0.4-2.0) Calcium 9.1 (8.4-10.2) mg/dL Total Bilirubin 1.10 (0.2-1.3) mg/dL AST 77 H (17-59) U/L ALT 93 H (0-50) U/L Alkaline Phosphatase 65 (38-126) U/L Serum Total Protein 7.7 (6.3-8.2) g/dL Albumin 4.1 (3.5-5.0) g/dL Urine Color (YELLOW) Urine Appearance (CLEAR) Urine pH (5-6) Ur Specific Enochs (1.005-1.025) Urine Protein (Negative) Urine Ketones (NEGATIVE) Urine Blood (0-5) Robert/ul Urine Nitrite (NEGATIVE) Urine Bilirubin (NEGATIVE) Urine Urobilinogen (0-1) mg/dL Ur Leukocyte Esterase (NEGATIVE) Urine WBC (Auto) (0-5) /HPF Urine RBC (Auto) (0-2) /HPF U Epithel Cells (Auto) (FEW) /HPF Urine Bacteria (Auto) (NEGATIVE) /HPF Urine Culture Reflexed (NO) Urine Glucose (NEGATIVE) mg/dL - Progress Progress: unchanged Progress Note: 07/16/20 11:[address] Chin 07/16/20 22:07 Zosyn 3.375mg IV given in ER Discussed with Dr.: Other (Dr. Cano) Will see patient in: hospital (observation) Counseled pt/family regarding: lab results, diagnosis, rad results - Departure Departure Disposition: Observation Clinical Impression: Cellulitis of right lower extremity Condition: Stable Critical Care Time: No
[2020-07-16 10:30] LABS: Hematocrit 42.5 % (42-50); Hemoglobin 14.2 gm/dl (12.5-18.0); Mean Cell Volume 95.1 fl (78-100); Mean Corpuscular Hemoglobin 31.8 pg (26-32); Mean Corpuscular Hgb Concent. 33.4 g/dl (32-36); Mean Platelet Volume 9.5 fl (7.5-11.0); Platelet Count 252 K/mm3 (150-450); Red Blood Count 4.47 M/mm3 (4.1-5.6); Red Cell Distribution Width 13.2 % (11.5-14.0); White Blood Count 23.6 K/mm3 (4.0-10.5)
[2020-07-16 10:32] LABS: Appearance SLIGHTLY CLOUDY (CLEAR); Bilirubin NEGATIVE (NEGATIVE); Blood SMALL Ery/ul (0-5); Glucose NEGATIVE (NEGATIVE); Ketones TRACE (NEGATIVE); Leukocyte Esterase NEGATIVE (NEGATIVE); Nitrite NEGATIVE (NEGATIVE); Protein,Urine Dip 30 (Negative); RBC 0-2 /HPF (0-2); Urobilinogen NEGATIVE mg/dL (0-1)
[2020-07-16 10:34] LABS: INR 4.04 (0.8-3.0); PROTIME 46.3 SECONDS (8.83-12.87)
[2020-07-16 10:36] LABS: Bacteria NONE SEEN /HPF (NEGATIVE)
[2020-07-16 10:36] LABS: PTT 46.5 SECONDS (24.1-36.1)
[2020-07-16 10:38] LABS: ALBUMIN 4.1 g/dL (3.5-5.0); ALKALINE PHOSPHATASE 65 U/L (38-126); ANION GAP 9.8 MEQ/L (5-15); BLOOD UREA NITROGEN 21 mg/dL (9-20); CHLORIDE 100 mmol/L (98-107); Calcium 9.1 mg/dL (8.4-10.2); Carbon Dioxide 27 mmol/L (22-30); Creatinine 1 1.07 mg/dL (0.66-1.25); EST GLOMERULAR FILTRATION RATE > 60.0 ML/MIN; Glucose 111 mg/dL (74-106); Potassium 3.9 mmol/L (3.5-5.1); SGOT/AST 77 U/L (17-59); SGPT/ALT 93 U/L (0-50); SODIUM 133 mmol/L (137-145); Total Protein 7.7 g/dL (6.3-8.2)
[2020-07-16] MEDS ORDERED: Zosyn 3.375 GM Vial 3.375 GM in Sodium Chloride 100ML MINI-BAG PLUS 100 ML IV ONE (10:51)
[2020-07-16] MEDS ORDERED: Zosyn 3.375 GM Vial IV ONE ×3 (10:53→23:33)
[2020-07-16] MEDS ORDERED: Sodium Chloride 100ML MINI-BAG PLUS 100 ML IV ONE ×3 (10:54→23:30)
--- NOTE | 2020-07-16 11:15 | XRAY ---
Indication: Fever and cough. Positive Covid 19. Comparison: August 28, 2016. Portable chest remains clear with new focal eventration right hemidiaphragm. Remaining heart and bony thorax unremarkable.
--- NOTE | 2020-07-16 11:17 | XRAY ---
Indication: Right leg swelling. Two-dimensional sonogram and color Doppler imaging of the major venous vessels of the right leg was performed. Comparison: August 26, 2016. No thrombus seen in the examined deep venous vessels of the right leg including greater saphenous vein. Veins and the straight normal compressibility. Venous waveforms are normal with and without augmentation. Right groin demonstrates a few enlarged lymph nodes, largest 4.2 x 2.7 x 5.2 cm presumed reactive. Impression: 1. Right leg remains negative for DVT. 2. New enlarged reactive right inguinal lymph nodes.
[2020-07-16 11:26] LABS: BAND 46 % (0.0-2.0); Lymphocytes 5 % (24-44); Metamyelocyte 3 %; Monocyte 1 % (0.0-12.0); Neutrophils 45 % (36.-66.); Total Cells Counted 100
[2020-07-16 11:27] LABS: Platelet Estimate NORMAL (NORMAL)
[2020-07-16 11:28] LABS: Absolute Neutrophil Ct (ANC) 21.48 (1.4-6.9)
[2020-07-16] MEDS ORDERED: HUMALOG SQ PRN (12:11)
[2020-07-16] MEDS ORDERED: VANCOMYCIN 1 GRAM/200 ML BAG 1 GM/200 ML PIGGYBACK IV SCH (12:30)
[2020-07-16] MEDS: Sodium Chloride 0.9% 1000 ML 1,000 ML IV SCH (14:06)
[2020-07-16] MEDS: VANCOCIN 1 GM VIAL*** 2.5 GM in Sodium Chloride 0.9% 500 ML 500 ML IV SCH (14:06)
[2020-07-16] MEDS: PROTONIX 40 MG IV IV SCH (14:06)
[2020-07-16] MEDS: TYLENOL 325 MG PO PRN ×2 (14:44→20:40)
[2020-07-16] MEDS ORDERED: MOTRIN 400 MG PO PRN (16:08)
[2020-07-16] MEDS ORDERED: MORPHINE SULFATE 4 MG INJ IV PRN (16:09)
[2020-07-16] MEDS: Zosyn 3.375 GM Vial 3.375 GM in Sodium Chloride 100ML MINI-BAG PLUS 100 ML IV SCH ×2 (18:09→23:44)
[2020-07-16] MEDS ORDERED: Ativan 1 MG PO PRN (19:59)
[2020-07-16] MEDS: Pepcid 20 MG VIAL IV SCH (20:40)
[2020-07-16] MEDS ORDERED: NON-FORMULARY ITEM (Diclofenac Sodium [Voltaren] 75 MG) PO SCH (22:00)
[2020-07-17] MEDS: VANCOCIN 1 GM VIAL*** 2.5 GM in Sodium Chloride 0.9% 500 ML 500 ML IV SCH ×2 (00:58→13:53)
[2020-07-17] MEDS: TYLENOL 325 MG PO PRN ×5 (00:58→21:33)
[2020-07-17] MEDS ORDERED: Zosyn 3.375 GM Vial IV ONE (04:22)
[2020-07-17] MEDS ORDERED: Sodium Chloride 100ML MINI-BAG PLUS 100 ML IV ONE (04:24)
[2020-07-17] MEDS: Zosyn 3.375 GM Vial 3.375 GM in Sodium Chloride 100ML MINI-BAG PLUS 100 ML IV SCH ×4 (05:16→23:02)
[2020-07-17 05:42] LABS: Mean Cell Volume 96.8 fl (78-100); Mean Corpuscular Hemoglobin 32.3 pg (26-32); Mean Corpuscular Hgb Concent. 33.3 g/dl (32-36); Mean Platelet Volume 9.6 fl (7.5-11.0); Platelet Count 207 K/mm3 (150-450); Red Blood Count 4.34 M/mm3 (4.1-5.6); Red Cell Distribution Width 13.4 % (11.5-14.0); White Blood Count 19.4 K/mm3 (4.0-10.5)
[2020-07-17 05:46] LABS: INR 2.24 (0.8-3.0); PROTIME 25.5 SECONDS (8.83-12.87)
[2020-07-17 05:50] LABS: ALKALINE PHOSPHATASE 66 U/L (38-126); ANION GAP 9.7 MEQ/L (5-15); BLOOD UREA NITROGEN 16 mg/dL (9-20); CHLORIDE 100 mmol/L (98-107); Calcium 8.8 mg/dL (8.4-10.2); Carbon Dioxide 28 mmol/L (22-30); Creatinine 1 1.22 mg/dL (0.66-1.25); EST GLOMERULAR FILTRATION RATE > 60.0 ML/MIN; Glucose 101 mg/dL (74-106); SGOT/AST 75 U/L (17-59); SGPT/ALT 101 U/L (0-50); SODIUM 134 mmol/L (137-145); Total Protein 7.5 g/dL (6.3-8.2)
[2020-07-17 06:20] LABS: BAND 31 % (0.0-2.0); Lymphocytes 4 % (24-44); Monocyte 1 % (0.0-12.0); Neutrophils 64 % (36.-66.); Total Cells Counted 100
[2020-07-17 06:21] LABS: Platelet Estimate NORMAL (NORMAL)
[2020-07-17] MEDS: Zestril 20 MG PO SCH ×2 (08:16→12:20)
[2020-07-17] MEDS: PROTONIX 40 MG IV IV SCH (08:17)
[2020-07-17] MEDS: Pepcid 20 MG VIAL IV SCH ×2 (08:18→21:24)
[2020-07-17] MEDS: Sodium Chloride 0.9% 1000 ML 1,000 ML IV SCH (09:33)
--- NOTE | 2020-07-17 10:57 | HP ---
CHIEF COMPLAINT: Swelling of the right leg. HISTORY OF PRESENT ILLNESS: The patient was positive for COVID approximately ten days ago and then his right lower leg started swelling up, getting red, hot and ran a temperature of 104F. He had COVID diagnosed on 07/04/2020. He had mild cough and some GI symptoms and that has tremendously improved and he got a slip to return to work. However, now the leg has flared up. He has had cellulitis of the leg before due to problems with peripheral venous problems. He is on Coumadin because he had severe peripheral venous thrombosis apparently in the past. His INR is elevated is elevated to 4 right now. He has had no symptoms of bleeding in the past. The leg does have pain but is not terribly complaining of it. He said he really felt bad with the high temperature much worse than when the COVID was acute. He said it has been like this two times before and one time he spent seven days in the hospital when it was worse. MEDICATIONS: Lisinopril 20 mg, Coumadin 18 mg q.d., Wellbutrin SR 150 b.i.d., Voltaren 75 b.i.d., Prilosec 20 q.d. ALLERGIES: SULFA. TRAVEL RISK: International: He has not been out of the country or out of the state but he does work at the [employer] where there is a lot of COVID. He has tested positive recently. PAST MEDICAL HISTORY: Hypertension, cellulitis, anxiety. PAST SURGICAL HISTORY: Hernia, I believe. No history of cath or other procedures. Tonsillectomy. REVIEW OF SYSTEMS: CONSTITUTIONAL: He has had fever and chills the last two days and flared up after becoming well for a week. HEENT: Runny nose. RESPIRATORY: Occasional cough. No problems with the cough. It has pretty well gone away from the COVID. CVS: No chest pain, shortness of breath, palpitations. Coronary artery disease. ABDOMEN: He had symptoms initially with COVID, abdominal pain, constipation, nausea and vomiting but he is back to normal. MUSCULOSKELETAL: He has knee pain, back pain and of course the right leg pain today. NEUROLOGICAL: History negative. CARDIAC HISTORY: High cholesterol, hypertension controlled with Lisinopril. ENDOCRINE: No diabetes mellitus or other problems. MUSCULOSKELETAL: Knee pain, back pain, right calf and ankle pain. GI: No problems with symptoms. : No problems urinating. PSYCHOSOCIAL: The patient does have some anxiety for which he takes Wellbutrin. SOCIAL HISTORY: Nonsmoker. The patient has a couple of adult children. He has two grandchildren. He is to his , Penny, who is a nurse. I think she runs one of the nursing homes locally. He works at the snf. PHYSICAL EXAMINATION: VITAL SIGNS: Temperature 100.4F, pulse 106, blood pressure 140/70. O2 saturation 95%. Pain intensity 4. GENERAL: The patient is an obese, younger than normal 45 year old white male in mild discomfort. He is alert, orientated, very pleasant man. He is nondrug seeking. I have known him for twenty years for his problems of hypertension and cellulitis. CHEST: Clear. CVS: Heart sounds normal. ABDOMEN: Soft. No masses or organomegaly. Markedly obese. EXTREMITIES: Swollen right leg, red from the knee down to the ankle, tender to touch. No venous prominence. LAB DATA AND TESTS: We note his white count is 23.6, A1C was normal and his blood sugars normal. Creatinine was 1.2. INR 4.4. IMPRESSION: 1) Severe cellulitis of the right leg reoccurring due to deep venous thrombosis in the past. 2) History of COVID nine days ago that seems to be stable and probably noninfectious. 3) Elevated white count of 24,000 secondary to cellulitis. PLAN: Will hold his Coumadin due to elevated pro-time and start him on Vancomycin and discontinue his Voltaren at this time due to risk of bleeding with the high INR. Start him on broad spectrum antibiotics. PROGNOSIS: Good.
[2020-07-17] MEDS ORDERED: NORCO 5/325 MG PO PRN (11:17)
[2020-07-17] MEDS: Coumadin 3 MG PO SCH (18:24)
[2020-07-18] MEDS: VANCOCIN 1 GM VIAL*** 2.5 GM in Sodium Chloride 0.9% 500 ML 500 ML IV SCH ×2 (00:33→14:02)
[2020-07-18] MEDS ORDERED: Sodium Chloride 100ML MINI-BAG PLUS 100 ML IV ONE (00:38)
[2020-07-18] MEDS: Zosyn 3.375 GM Vial 3.375 GM in Sodium Chloride 100ML MINI-BAG PLUS 100 ML IV SCH ×4 (05:00→23:09)
[2020-07-18 05:53] LABS: INR 1.84 (0.8-3.0); PROTIME 20.9 SECONDS (8.83-12.87)
[2020-07-18 09:23] LABS: Hematocrit 37.3 % (42-50); Hemoglobin 12.2 gm/dl (12.5-18.0); Mean Cell Volume 97.9 fl (78-100); Mean Corpuscular Hgb Concent. 32.7 g/dl (32-36); Mean Platelet Volume 10.4 fl (7.5-11.0); Platelet Count 196 K/mm3 (150-450); Red Blood Count 3.81 M/mm3 (4.1-5.6); Red Cell Distribution Width 13.6 % (11.5-14.0); White Blood Count 16.8 K/mm3 (4.0-10.5)
[2020-07-18 09:29] LABS: ALBUMIN 3.7 g/dL (3.5-5.0); BLOOD UREA NITROGEN 13 mg/dL (9-20); CHLORIDE 104 mmol/L (98-107); Calcium 8.1 mg/dL (8.4-10.2); Carbon Dioxide 28 mmol/L (22-30); Creatinine 1 1.05 mg/dL (0.66-1.25); EST GLOMERULAR FILTRATION RATE > 60.0 ML/MIN; Glucose 98 mg/dL (74-106); Potassium 3.6 mmol/L (3.5-5.1); SGOT/AST 57 U/L (17-59); SGPT/ALT 73 U/L (0-50); SODIUM 137 mmol/L (137-145); Total Protein 7.1 g/dL (6.3-8.2)
[2020-07-18] MEDS: Pepcid 20 MG VIAL IV SCH ×2 (09:47→21:34)
[2020-07-18] MEDS: PROTONIX 40 MG IV IV SCH (09:47)
[2020-07-18 10:34] LABS: ALKALINE PHOSPHATASE 85 U/L (38-126)
[2020-07-18] MEDS: Zestril 20 MG PO SCH ×2 (12:14→18:12)
[2020-07-18] MEDS: TYLENOL 325 MG PO PRN ×3 (12:15→21:52)
[2020-07-18] MEDS ORDERED: TROUGH DRUG LEVELS IJ ONE (12:30)
[2020-07-18 13:47] LABS: Total Cells Counted 100
[2020-07-18 13:49] LABS: ABSOLUTE NEUTROPHILS 14.1 (1.4-6.9); BAND 12 % (0.0-2.0); Lymphocytes 8 % (24-44); Monocyte 6 % (0.0-12.0); Neutrophils 72 % (36.-66.); Platelet Estimate NORMAL (NORMAL)
[2020-07-18] MEDS: Sodium Chloride 0.9% 1000 ML 1,000 ML IV SCH (14:01)
[2020-07-18] MEDS: Coumadin 3 MG PO SCH (18:12)
[2020-07-19] MEDS: VANCOCIN 1 GM VIAL*** 2.5 GM in Sodium Chloride 0.9% 500 ML 500 ML IV SCH ×2 (00:48→14:46)
[2020-07-19] MEDS: Sodium Chloride 0.9% 1000 ML 1,000 ML IV SCH (05:50)
[2020-07-19] MEDS: Zosyn 3.375 GM Vial 3.375 GM in Sodium Chloride 100ML MINI-BAG PLUS 100 ML IV SCH ×3 (05:50→18:47)
[2020-07-19] MEDS: TYLENOL 325 MG PO PRN ×2 (05:55→18:47)
[2020-07-19 06:44] LABS: Hematocrit 35.9 % (42-50); Hemoglobin 11.9 gm/dl (12.5-18.0); Mean Cell Volume 97.3 fl (78-100); Mean Corpuscular Hemoglobin 32.2 pg (26-32); Mean Corpuscular Hgb Concent. 33.1 g/dl (32-36); Mean Platelet Volume 9.6 fl (7.5-11.0); Platelet Count 195 K/mm3 (150-450); Red Blood Count 3.69 M/mm3 (4.1-5.6); Red Cell Distribution Width 13.4 % (11.5-14.0); White Blood Count 12.4 K/mm3 (4.0-10.5)
[2020-07-19 06:50] LABS: INR 1.98 (0.8-3.0); PROTIME 22.5 SECONDS (8.83-12.87)
[2020-07-19 06:52] LABS: ANION GAP 9.5 MEQ/L (5-15); BLOOD UREA NITROGEN 11 mg/dL (9-20); CHLORIDE 102 mmol/L (98-107); Calcium 8.1 mg/dL (8.4-10.2); Carbon Dioxide 28 mmol/L (22-30); Creatinine 1 0.87 mg/dL (0.66-1.25); EST GLOMERULAR FILTRATION RATE > 60.0 ML/MIN; Glucose 101 mg/dL (74-106); Potassium 3.5 mmol/L (3.5-5.1); SODIUM 136 mmol/L (137-145)
[2020-07-19] MEDS: Pepcid 20 MG VIAL IV SCH ×2 (09:26→22:22)
[2020-07-19] MEDS: PROTONIX 40 MG IV IV SCH (09:26)
[2020-07-19] MEDS: Cozaar 50 MG PO SCH (14:46)
[2020-07-19] MEDS: Zestril 20 MG PO SCH (15:49)
[2020-07-19] MEDS ORDERED: Coumadin 5 MG PO SCH (18:00)
[2020-07-19] MEDS: VENTOLIN COMMON CANISTER IH PRN (18:56)
[2020-07-19] MEDS ORDERED: Robitussin-Dm Syrup PO PRN (23:51)
[2020-07-20] MEDS: Zosyn 3.375 GM Vial 3.375 GM in Sodium Chloride 100ML MINI-BAG PLUS 100 ML IV SCH ×3 (00:40→11:19)
[2020-07-20] MEDS: TYLENOL 325 MG PO PRN ×2 (00:52→11:55)
[2020-07-20] MEDS: VANCOCIN 1 GM VIAL*** 2.5 GM in Sodium Chloride 0.9% 500 ML 500 ML IV SCH ×2 (01:54→11:19)
[2020-07-20] MEDS: Sodium Chloride 0.9% 1000 ML 1,000 ML IV SCH (04:12)
[2020-07-20 06:12] LABS: Hematocrit 34.8 % (42-50); Hemoglobin 11.5 gm/dl (12.5-18.0); Mean Cell Volume 97.2 fl (78-100); Mean Corpuscular Hemoglobin 32.1 pg (26-32); Mean Platelet Volume 9.5 fl (7.5-11.0); Platelet Count 223 K/mm3 (150-450); Red Blood Count 3.58 M/mm3 (4.1-5.6); Red Cell Distribution Width 13.1 % (11.5-14.0); White Blood Count 10.6 K/mm3 (4.0-10.5)
[2020-07-20 06:31] LABS: BLOOD UREA NITROGEN 9 mg/dL (9-20); CHLORIDE 103 mmol/L (98-107); Calcium 8.1 mg/dL (8.4-10.2); Carbon Dioxide 29 mmol/L (22-30); Creatinine 1 0.86 mg/dL (0.66-1.25); EST GLOMERULAR FILTRATION RATE > 60.0 ML/MIN; Glucose 105 mg/dL (74-106); Potassium 3.8 mmol/L (3.5-5.1); SODIUM 136 mmol/L (137-145)
[2020-07-20] MEDS: PROTONIX 40 MG IV IV SCH (10:58)
[2020-07-20] MEDS: Pepcid 20 MG VIAL IV SCH (10:58)
[2020-07-20] MEDS ORDERED: Sodium Chloride 100ML MINI-BAG PLUS 0 ML IV ONE (11:13)
[2020-07-20] MEDS: Cozaar 50 MG PO SCH (11:17)
[2020-07-20] MEDS: VENTOLIN COMMON CANISTER IH PRN (11:36)
[2020-07-20 12:43] VITALS: BP 155/84
[2020-07-20 14:08] VITALS: PULSE 96; O2SAT 95
== END 2020-07-20 15:55 | disposition home or self-care (01) | DRG 603 ==
LOC: ED 09:42 → MED SURG 12:26 → OBSVTOIN 16:00
PROVIDERS: ADMIT Family Medicine; ATTEND Family Medicine
DX: L03.115 Cellulitis of right lower limb (principal); Z86.718 Personal history of other venous thrombosis and embolism; Z79.01 Long term (current) use of anticoagulants; Z79.899 Other long term (current) drug therapy; I10 Essential (primary) hypertension; Z86.19 Personal history of other infectious and parasitic diseases; D72.9 Disorder of white blood cells, unspecified
CPT/HCPCS: 36000; 36415; 71045; 80048; 80053; 80202; 81001; 83036; 83605; 85025; 85027; 85610; 85730; 87040; 87086; 93971; 94640; 94762; 96374; 99285; J3370; A9270-GY

== ENCOUNTER 2022-06-18 15:47 | Day surgery (SDC) | payer BC ==
[2013-04-03 18:44] VITALS: BP 142/64
[2022-06-18] MEDS ORDERED: Xylocaine 1% Vial 30 ML PF IJ ONE (15:48)
[2022-06-18] MEDS ORDERED: Depo-Medrol 40 MG/ML IM ONE (15:48)
[2022-06-18] MEDS ORDERED: BUPIVACAINE 0.5% VIAL IJ ONE (15:48)
[2022-06-18 16:55] LABS: INR 2.05 (0.8-3.0); PROTIME 20.4 SECONDS (9.4-12.5)
--- NOTE | 2022-06-18 19:17 | XRAY ---
Indication: Bilateral SI joint injection. Intraoperative fluoroscopy provided for 20 seconds. 4 digital spot image submitted for interpretation demonstrates posterior needle tip projecting over the left and right SI joint. Correlate with intraoperative findings/report.
--- NOTE | 2022-06-19 10:47 | XRAY ---
20 seconds of fluoroscopy was used in surgery for bilateral SI joint injections.
== END 2022-06-18 18:45 | disposition home or self-care (01) ==
LOC: SDC-PAIN 15:47
PROVIDERS: ATTEND Psychiatry & Neurology Pain Medicine
DX: M46.1 Sacroiliitis, not elsewhere classified (principal); Z79.01 Long term (current) use of anticoagulants; Z79.899 Other long term (current) drug therapy
CPT/HCPCS: 27096; 36415; 72202; 77002; 85610; J1030; J2001; G0260

== ENCOUNTER 2022-08-07 14:09 | Day surgery (SDC) | payer BC ==
[2013-04-03 18:44] VITALS: BP 142/64
[2022-08-07] MEDS ORDERED: BUPIVACAINE 0.5% VIAL IJ ONE (14:10)
[2022-08-07] MEDS ORDERED: Depo-Medrol 40 MG/ML IM ONE (14:10)
[2022-08-07] MEDS ORDERED: LIDOCAINE HCL 2% 100 MG/5 ML IJ ONE (14:10)
[2022-08-07] MEDS ORDERED: Versed 2 MG/2 ML Injection ONE ×2 (15:27→16:18)
[2022-08-07 15:34] LABS: INR 1.06 (0.8-3.0); PROTIME 11.2 SECONDS (9.4-12.5)
[2022-08-07] MEDS ORDERED: SUBLIMAZE 100 MCG/2 ML ONE (16:18)
--- NOTE | 2022-08-07 19:37 | XRAY ---
Indication: Bilateral L4-S1 facet injection. Intraoperative fluoroscopy provided for 1 minutes 5 seconds. 5 digital spot images submitted for interpretation demonstrates posterior needle tips projecting over the left and right L4-S1 facets. Correlate with intraoperative findings/report.
--- NOTE | 2022-08-08 12:35 | XRAY ---
1 minute 5 seconds of fluoroscopy was used in surgery for a bilateral L4-S1 facet joint injection.
== END 2022-08-07 17:00 | disposition home or self-care (01) ==
LOC: SDC-PAIN 14:09
PROVIDERS: ATTEND Psychiatry & Neurology Pain Medicine
DX: M47.816 Spondylosis without myelopathy or radiculopathy, lumbar region (principal); Z79.899 Other long term (current) drug therapy; Z79.01 Long term (current) use of anticoagulants
CPT/HCPCS: 36415; 64493; 64494; 72020; 77002; 85610; J1030; J2250; J3010

== ENCOUNTER 2022-11-05 15:14 | Day surgery (SDC) | payer BC ==
[2013-04-03 18:44] VITALS: BP 142/64
[2022-11-05] MEDS ORDERED: BUPIVACAINE 0.5% VIAL IJ ONE (15:15)
[2022-11-05] MEDS ORDERED: LIDOCAINE HCL 1% 50 MG/5 ML VL PF IJ ONE (15:15)
[2022-11-05 16:17] LABS: INR 0.99 (0.8-3.0); PROTIME 10.8 SECONDS (9.4-12.5)
[2022-11-05] MEDS ORDERED: Lactated Ringers 1,000 ML IV ONE (17:17)
--- NOTE | 2022-11-05 20:49 | XRAY ---
Indication: Bilateral L4-S1 MBB. Intraoperative fluoroscopy provided for 39 seconds. 2 digital spot image submitted for interpretation demonstrates posterior needle tips projecting over the expected left and right L4-S1 nerve roots. Correlate with intraoperative findings/report.
--- NOTE | 2022-11-06 08:42 | XRAY ---
39 seconds of fluoroscopy was used in surgery for a bilateral L4-S1 MBB.
== END 2022-11-05 18:00 | disposition home or self-care (01) ==
LOC: SDC-PAIN 15:14
PROVIDERS: ATTEND Psychiatry & Neurology Pain Medicine
DX: M47.816 Spondylosis without myelopathy or radiculopathy, lumbar region (principal); Z79.899 Other long term (current) drug therapy
CPT/HCPCS: 36415; 64493; 64494; 72020; 77002; 85610; J2001

== ENCOUNTER 2022-12-03 13:13 | Day surgery (SDC) | payer BC ==
[2013-04-03 18:44] VITALS: BP 142/64
[2022-12-03] MEDS ORDERED: Depo-Medrol 40 MG/ML IM ONE (13:14)
[2022-12-03] MEDS ORDERED: LIDOCAINE HCL 1% 50 MG/5 ML VL PF IJ ONE (13:14)
[2022-12-03] MEDS ORDERED: BUPIVACAINE 0.5% VIAL IJ ONE (13:14)
[2022-12-03 14:35] LABS: INR 1.06 (0.8-3.0); PROTIME 11.5 SECONDS (9.4-12.5)
--- NOTE | 2022-12-03 15:55 | XRAY ---
Indication: Left L4-S1 RFA. Intraoperative fluoroscopy provided for 42 seconds. 4 digital spot images submitted for interpretation demonstrates posterior needle tips projecting over the expected left L4-S1 nerve roots. Correlate with intraoperative findings/report.
[2022-12-03] MEDS ORDERED: Lactated Ringers 1,000 ML IV ONE (17:00)
--- NOTE | 2022-12-03 17:07 | XRAY ---
42 seconds of fluoroscopy was used in surgery for a left L4-S1 RFA.
== END 2022-12-03 15:45 | disposition home or self-care (01) ==
LOC: SDC-PAIN 13:13
PROVIDERS: ATTEND Psychiatry & Neurology Pain Medicine
DX: M47.817 Spondylosis without myelopathy or radiculopathy, lumbosacral region (principal); Z79.899 Other long term (current) drug therapy; Z79.01 Long term (current) use of anticoagulants
CPT/HCPCS: 36415; 64635; 64636; 72100; 77002; 85610; 93268; G0378; J1030; J2001

== ENCOUNTER 2022-12-17 15:03 | Day surgery (SDC) | payer BC ==
[2013-04-03 18:44] VITALS: BP 142/64
[2022-12-17] MEDS ORDERED: LIDOCAINE HCL 1% 50 MG/5 ML VL PF IJ ONE (15:04)
[2022-12-17] MEDS ORDERED: BUPIVACAINE 0.5% VIAL IJ ONE (15:04)
[2022-12-17] MEDS ORDERED: Depo-Medrol 40 MG/ML IM ONE (15:04)
[2022-12-17] MEDS ORDERED: Lactated Ringers 1,000 ML IV ONE (16:43)
[2022-12-17 16:49] LABS: INR 1.05 (0.8-3.0); PROTIME 11.4 SECONDS (9.4-12.5)
--- NOTE | 2022-12-17 18:44 | XRAY ---
Indication: Right L4-S1 RFA. Intraoperative fluoroscopy provided for 30 seconds. 4 digital spot image submitted for interpretation demonstrates posterior needle tips projecting over the expected right L4-S1 nerve roots. Correlate with intraoperative findings/report.
--- NOTE | 2022-12-17 18:48 | XRAY ---
30 seconds of fluoroscopy was used in surgery for a right L4-S1 RFA.
== END 2022-12-17 17:57 | disposition home or self-care (01) ==
LOC: SDC-PAIN 15:03
PROVIDERS: ATTEND Psychiatry & Neurology Pain Medicine
DX: M47.816 Spondylosis without myelopathy or radiculopathy, lumbar region (principal); Z79.899 Other long term (current) drug therapy; Z79.01 Long term (current) use of anticoagulants
CPT/HCPCS: 36415; 64635; 64636; 72100; 77002; 85610; J1030; J2001

== ENCOUNTER 2023-02-18 14:09 | Day surgery (SDC) | payer BC ==
[2013-04-03 18:44] VITALS: BP 142/64
[2023-02-18] MEDS ORDERED: LIDOCAINE HCL 1% 50 MG/5 ML VL PF IJ ONE (14:10)
[2023-02-18] MEDS ORDERED: BUPIVACAINE 0.5% VIAL IJ ONE (14:10)
[2023-02-18] MEDS ORDERED: Depo-Medrol 40 MG/ML IM ONE (14:10)
[2023-02-18 16:35] LABS: INR 2.15 (0.8-3.0); PROTIME 22.1 SECONDS (9.4-12.5)
--- NOTE | 2023-02-18 19:25 | XRAY ---
Indication: Bilateral SI joint injection. Intraoperative fluoroscopy provided for 19 seconds. 4 digital spot images submitted for interpretation demonstrates posterior needle tip projecting over the expected left and right SI joint. Correlate with intraoperative findings/report.
--- NOTE | 2023-02-19 10:04 | XRAY ---
19 seconds of fluoroscopy was used in surgery for a bilateral sacroiliac joint injection.
== END 2023-02-18 16:10 | disposition home or self-care (01) ==
LOC: SDC-PAIN 14:09
PROVIDERS: ATTEND Psychiatry & Neurology Pain Medicine
DX: M46.1 Sacroiliitis, not elsewhere classified (principal); Z79.899 Other long term (current) drug therapy; Z79.01 Long term (current) use of anticoagulants
CPT/HCPCS: 27096; 36415; 72202; 77002; 85610; J1030; J2001; G0260

== ENCOUNTER 2023-05-06 15:46 | Day surgery (SDC) | payer BC ==
[2013-04-03 18:44] VITALS: BP 142/64
[2023-05-06] MEDS ORDERED: Sodium Chloride 0.9(Preservative Free) 10 ML IJ ONE (15:47)
[2023-05-06] MEDS ORDERED: Depo-Medrol 40 MG/ML IM ONE (15:47)
[2023-05-06] MEDS ORDERED: LIDOCAINE HCL 1% 50 MG/5 ML VL PF IJ ONE (15:47)
[2023-05-06 16:53] LABS: INR 1.03 (0.8-3.0); PROTIME 11.2 SECONDS (9.4-12.5)
[2023-05-06] MEDS ORDERED: Lactated Ringers 1,000 ML IV ONE (17:39)
--- NOTE | 2023-05-06 18:39 | XRAY ---
Indication: Lumbar YUSEF. Intraoperative fluoroscopy provided for 50 seconds. 6 digital spot image submitted for interpretation demonstrates posterior needle tip projecting posterior to lumbosacral junction. Small amount of contrast injected for needle tip placement. Correlate with intraoperative findings/report.
--- NOTE | 2023-05-07 08:42 | XRAY ---
50 seconds of fluoroscopy was used in surgery for a lumbar YUSEF.
== END 2023-05-06 18:01 | disposition home or self-care (01) ==
LOC: SDC-PAIN 15:46
PROVIDERS: ATTEND Psychiatry & Neurology Pain Medicine
DX: M54.16 Radiculopathy, lumbar region (principal); Z79.899 Other long term (current) drug therapy
CPT/HCPCS: 36415; 62323; 72100; 77003; 85610; J1030; J2001; Q9966

== ENCOUNTER 2023-06-17 15:49 | Day surgery (SDC) | payer BC ==
[2013-04-03 18:44] VITALS: BP 142/64
[2023-06-17] MEDS ORDERED: BUPIVACAINE 0.5% VIAL IJ ONE (15:50)
[2023-06-17] MEDS ORDERED: Depo-Medrol 40 MG/ML IM ONE (15:50)
[2023-06-17] MEDS ORDERED: LIDOCAINE HCL 1% 50 MG/5 ML VL PF IJ ONE (15:50)
[2023-06-17 17:28] LABS: INR 4.77 (0.8-3.0); PROTIME 46.3 SECONDS (9.4-12.5)
--- NOTE | 2023-06-18 08:44 | XRAY ---
Indication: Right knee injection. Intraoperative fluoroscopy provided for 7 seconds. Single digital spot image submitted for interpretation demonstrates needle tip projecting over the right femur intercondylar notch. Small amount of contrast injected for needle tip placement. Correlate with intraoperative findings/report.
--- NOTE | 2023-06-18 08:45 | XRAY ---
Indication: Left knee injection. Intraoperative fluoroscopy provided for 5 seconds. Single digital spot image submitted for interpretation demonstrates needle tip projecting over the left femur intercondylar notch. Small amount of contrast injected for needle tip placement. Correlate with intraoperative findings/report.
--- NOTE | 2023-06-18 11:31 | XRAY ---
5 seconds of fluoroscopy was used in surgery for a left intra-articular knee injection.
--- NOTE | 2023-06-18 11:31 | XRAY ---
7 seconds of fluoroscopy was used in surgery for a right intra-articular knee injection.
== END 2023-06-17 19:01 | disposition home or self-care (01) ==
LOC: SDC-PAIN 15:49
PROVIDERS: ATTEND Psychiatry & Neurology Pain Medicine
DX: M17.0 Bilateral primary osteoarthritis of knee (principal); Z79.899 Other long term (current) drug therapy; Z79.01 Long term (current) use of anticoagulants
CPT/HCPCS: 20610; 36415; 73560; 77002; 85610; J1030; J2001; Q9966